=== PATIENT | female | born 1955 | race Caucasian/White ===

== ENCOUNTER → 2017-03-25 | Outpatient (CLI) | payer MEDICAID | LOC: BRMIMAGING 10:46 | PROVIDERS: ATTEND Physician Assistant | DX: Z12.31 Encounter for screening mammogram for malignant neoplasm of breast (principal); M25.551 Pain in right hip | CPT/HCPCS: 73521-PO; G0202 ==

== ENCOUNTER → 2018-11-06 | Outpatient (CLI) | payer MEDICAID | LOC: BRMIMAGING 09:28 | PROVIDERS: ATTEND Physician Assistant | DX: R22.33 Localized swelling, mass and lump, upper limb, bilateral (principal) | CPT/HCPCS: 76641-PO ==